=== PATIENT | female | born 1945 | race Caucasian/White ===

== ENCOUNTER 2017-03-01 16:17 | Emergency (ER) | payer MEDICARE, OTHER ==
[~2017-03-01] VITALS: Ht 167.6 cm; Wt 70.0 kg
[2017-03-01 16:25] VITALS: Ht 167.6 cm; Wt 70.0 kg
[2017-03-01] MEDS ORDERED: ASPI-664 PO (16:39)
[2017-03-01] MEDS ORDERED: TRAM-40 PO (16:40)
[2017-03-01] MEDS ORDERED: METO-448 PO (16:42)
[2017-03-01] MEDS ORDERED: DEXL30CA2 PO (16:42)
[2017-03-01] MEDS ORDERED: NAPR-688 PO (16:43)
[2017-03-01] MEDS ORDERED: ASPI325T95 PO (16:46)
[2017-03-01] MEDS ORDERED: ONDANSETRON 4 MG INJ IV STA (16:49)
[2017-03-01] MEDS ORDERED: SOD CHLORIDE 0.9% 1,000 ML IV STA (16:49)
[2017-03-01] MEDS ORDERED: LORAZEPAM 2 MG INJ IV ONE (17:00)
[2017-03-01 17:19] LABS: ADD SCAN DIFF NO
[2017-03-01 17:25] LABS: BASOPHILS % 0.1 % (0.0-2.0); EOSINOPHILS % 0.5 % (0.0-7.0); HEMATOCRIT 36.6 % (37.0-47.0); LYMPHOCYTES # 0.9 10^3/ul (0.8-2.9); LYMPHOCYTES % 10.6 % (15.0-51.0); MEAN CORPUSCULAR HEMOGLOBIN 28.7 pg (29.0-33.0); MEAN CORPUSCULAR HGB CONC 32.8 g/dl (32.0-37.0); MEAN CORPUSCULAR VOLUME 87.6 fl (82.0-101.0); MEAN PLATELET VOLUME 10.2 fl (7.4-10.4); MONOCYTE # 0.4 10^3/ul (0.3-0.9); MONOCYTES % 4.3 % (0.0-11.0); NEUTROPHIL # 6.8 10^3/ul (1.6-7.5); PLATELET COUNT 182 10^3/UL (140-415); RED BLOOD COUNT 4.18 10^6/ul (4.20-5.40); RED CELL DISTRIBUTION WIDTH 13.1 % (11.5-14.5); WHITE BLOOD COUNT 8.1 10^3/ul (4.8-10.8)
[2017-03-01 17:29] LABS: ALBUMIN 4.2 g/dl (3.3-4.9); CHLORIDE 97 mmol/L (97-110); POTASSIUM 3.6 mmol/L (3.5-5.1); SODIUM 136 mmol/L (135-144)
[2017-03-01 17:31] LABS: CREATININE 0.46 mg/dl (0.44-1.00)
[2017-03-01 17:32] LABS: ALANINE AMINOTRANSFERASE 30 IU/L (13-69); ALKALINE PHOSPHATASE 60 IU/L (42-121); ANION GAP 15 (8-16); ASPARTATE AMINO TRANSFERASE 22 IU/L (15-46); BILIRUBIN,INDIRECT 0.2 mg/dl (0-1.1); BILIRUBIN,TOTAL 0.2 mg/dl (0.2-1.3); BLOOD UREA NITROGEN 14 mg/dl (7-20); CALCIUM 8.8 mg/dl (8.4-10.2); CARBON DIOXIDE 28 mmol/L (21-31); GLUCOSE 129 mg/dl (70-220)
[2017-03-01 17:54] LABS: TROPONIN-I < 0.012 ng/ml (0.00-0.12)
[2017-03-01] MEDS ORDERED: ONDA4TAB8 PO (18:14)
[2017-03-01] MEDS ORDERED: FAMO40TA52 PO (18:14)
--- NOTE | 2017-03-01 18:19 | ERA ---
ER Documentation Chief Complaint Date/Time DATE: 03/01/17 TIME: 18:16 Chief Complaint BIB RA FOR EVAL OF N/V X 1 HOUR. HPI 8-year-old woman brought in by daughter for epigastric abdominal discomfort radiating upward associated with multiple episodes of clear nonbloody nonbilious emesis. She states she has had these symptoms before. She states she feels constipated, denies diarrhea, no blood per rectum or melena, no chest pain or shortness of breath, no headache or blurry vision. ROS All systems reviewed and are negative except as per history of present illness. Medications Home Meds Active Scripts Famotidine* (Famotidine*) 40 Mg Tablet, 40 MG PO HS, #30 TAB Prov:INDY MARY MD 03/01/17 Ondansetron Hcl* (Zofran*) 4 Mg Tablet, 4 MG PO Q8H Y for NAUSEA AND/OR VOMITING , #12 TAB Prov:INDY MARY MD 03/01/17 Reported Medications Aspirin/Calcium Carbonate/Mag (Aspirin Buffered) 325 Mg Tablet, 325 MG PO 2 WEEKS for PAIN, TAB PATIENT SAID TAKEN 02/01/17 FOR TWO WEEKS ONLY AFTER THE OPERATION. 03/01/17 Naproxen* (Naproxen*) 500 Mg Tablet, 500 MG PO BID Y for PAIN, TAB 03/01/17 Dexlansoprazole (Dexilant) 30 Mg Cap., 30 MG PO DAILY, #30 CAP 03/01/17 Metoprolol Tartrate* (Lopressor*) 25 Mg Tab, 25 MG PO BID, #60 TAB 03/01/17 Tramadol Hcl* (Ultram*) 50 Mg Tablet, 50 MG PO Q8, TAB 03/01/17 Aspirin* (Aspirin* EC) 81 Mg Tablet., 81 MG PO DAILY, TAB 03/01/17 Allergies Allergies: Coded Allergies: No Known Allergy (Unverified , 03/01/17) PMhx/Soc Recent left total hip arthroplasty, cholecystectomy in 2001, hypertension, coronary artery disease Anesthesia Reaction: No Hx Neurological Disorder: No Hx Respiratory Disorders: No Hx Cardiac Disorders: No Hx Psychiatric Problems: No Hx Miscellaneous Medical Probl: No Hx Alcohol Use: No Hx Substance Use: No Hx Tobacco Use: No Smoking Status: Unknown if ever smoked FmHx Family History: diabetes Physical Exam Vitals Vital Signs Date Time Temp Pulse Resp B/P Pulse Ox O2 Delivery O2 Flow Rate FiO2 03/01/17 19:35 97.6 71 16 133/88 100 Room Air 03/01/17 16:25 97.5 73 18 141/90 99 Physical Exam GENERAL: Well-developed, well-nourished, well-hydrated, nauseous in moderate discomfort, afebrile HEENT: Moist mucous membranes, pink conjunctiva, no cervical spine tenderness or step-off deformities, no goiter, no jaundice or icterus, extraocular movements intact without pain. No submandibular induration, and no pharyngeal erythema NEURO: Alert and oriented 3, cranial nerves II through XII intact bilaterally, pupils equal round reactive to light, no focal deficits or facial asymmetry, sensation intact distally Strength 5/5 in upper and lower extremities bilaterally CARDIAC: Regular rate and rhythm, no murmurs rubs or gallops LUNGS: Clear bilaterally no wheezing crackles or stridor ABDOMEN: Soft nontender, no guarding, no rigidity, no rebound, no psoas sign no obturator sign. Normoactive bowel sounds SKIN: Warm and dry to touch, no abrasions, contusions, or hematomas, no lacerations, no ecchymosis, no target lesions, and without ulcers EXTREMITIES: No clubbing cyanosis or edema, calves are bilaterally symmetrical, no Homans sign, no popliteal cord sign. Distal pulses equal and bilateral PSYCH: Anxious Result Diagram: 03/01/17 1700 03/01/17 1700 Results 24 hrs Laboratory Tests Test 03/01/17 17:00 03/01/17 18:09 White Blood Count 8.110^3/ul Red Blood Count 4.1810^6/ul Hemoglobin 12.0g/dl Hematocrit 36.6% Mean Corpuscular Volume 87.6fl Mean Corpuscular Hemoglobin 28.7pg Mean Corpuscular Hemoglobin Concent 32.8g/dl Red Cell Distribution Width 13.1% Platelet Count 50039^3/UL Mean Platelet Volume 10.2fl Neutrophils % 83.0% Lymphocytes % 10.6% Monocytes % 4.3% Eosinophils % 0.5% Basophils % 0.1% Nucleated Red Blood Cells % 0.0/100WBC Neutrophils # 6.810^3/ul Lymphocytes # 0.910^3/ul Monocytes # 0.410^3/ul Eosinophils # 0.010^3/ul Basophils # 0.010^3/ul Nucleated Red Blood Cells # 0.010^3/ul Sodium Level 136mmol/L Potassium Level 3.6mmol/L Chloride Level 97mmol/L Carbon Dioxide Level 28mmol/L Anion Gap 15 Blood Urea Nitrogen 14mg/dl Creatinine 0.46mg/dl Glucose Level 129mg/dl Calcium Level 8.8mg/dl Total Bilirubin 0.2mg/dl Direct Bilirubin 0.00mg/dl Indirect Bilirubin 0.2mg/dl Aspartate Amino Transf (AST/SGOT) 22IU/L Alanine Aminotransferase (ALT/SGPT) 30IU/L Alkaline Phosphatase 60IU/L Troponin I < 0.012ng/ml Total Protein 7.0g/dl Albumin 4.2g/dl Globulin 2.80g/dl Albumin/Globulin Ratio 1.50 Lipase 58U/L Urine Color LT. YELLOW Urine Clarity CLEAR Urine pH 7.0 Urine Specific [place] 1.015 Urine Ketones NEGATIVE Urine Nitrite NEGATIVE Urine Bilirubin NEGATIVE Urine Urobilinogen 0.2 E.U./dL Urine Leukocyte Esterase NEGATIVE Urine Hemoglobin NEGATIVE Urine Glucose NEGATIVE% Urine Total Protein NEGATIVE Current Medications Medications (Trade) Dose Ordered Sig/Khari Route PRN Reason Start Time Stop Time Status Last Admin Dose Admin Sodium Chloride (NS) 1,000 ml @ 1,000 mls/hr Q1H STAT IV 03/01/17 16:49 03/01/17 17:48 DC 03/01/17 17:04 Ondansetron HCl (Zofran Inj) 4 mg ONCE STAT IV 03/01/17 16:49 03/01/17 16:50 DC 03/01/17 17:04 Lorazepam (Ativan) 0.25 mg ONCE ONCE IV 03/01/17 17:00 03/01/17 17:01 DC 03/01/17 17:04 Procedures/MDM IV line was established patient was placed on manager monitoring rhythm strip revealed a sinus rhythm at about 80 bpm with upright P and T waves. Patient was afebrile. EKG performed, read by me: 79 bpm, normal sinus rhythm, normal axis, no acute ST segment changes, narrow QRS complex, with good R-wave progression in precordial leads. I strongly recommended CT scan of the abdomen and pelvis although patient refused, she wanted no imaging including MRI. X-rays and ultrasounds are completely unreliable in regards to ruling out bowel obstruction. The risks associated with not imaging her were discussed with her and her daughter who was also at the bedside. Her daughter also try persuading her to undergo CT scan of abdomen and pelvis, although patient stayed. she felt much better and still refused. I treated her here with 1 L normal saline intravenously, lorazepam 0.25 mg IV 1 , Zofran 4 mg IV with good response. CBC was unremarkable, electrolytes normal, liver function tests normal, troponin was negative, urine analysis was negative for infection. Differential diagnoses considered, included but not limited to acute coronary syndrome, pulmonary embolism, aortic dissection, abdominal aortic aneurysm, sepsis, stroke, meningitis, encephalitis, pneumonia, appendicitis, cholecystitis , bowel obstruction, pyelonephritis, nephrolithiasis, cystitis, as well as metabolic, hematologic, and electrolyte abnormalities. As well as abscess, cellulitis, fractures, and dislocations. Patient feels much better at this time, and vital signs are normal, symptoms have improved. I did give strict instructions to return to the ED if symptoms continue or worsen, patient will otherwise follow-up with primary care physician. Patient understood instructions and agreed to plan. Departure Diagnosis: Primary Impression: Abdominal pain Qualified Code: R10.84 - Generalized abdominal pain Additional Impression: Vomiting Qualified Code: R11.2 - Non-intractable vomiting with nausea, unspecified vomiting type Condition: Good Patient Instructions: Abdominal Pain, Vomiting (7Y-Adult) INDY MARY MD Mar 01, 2017 18:19
[2017-03-01 19:06] LABS: ADD UMIC NO; URINE BILIRUBIN (Dip) NEGATIVE (NEGATIVE); URINE BLOOD (Dip) NEGATIVE (NEGATIVE); URINE COLOR LT. YELLOW (YELLOW); URINE GLUCOSE (Dip) NEGATIVE (NEGATIVE); URINE KETONES (Dip) NEGATIVE (NEGATIVE); URINE LEUKOCYTE ESTERASE (Dip) NEGATIVE (NEGATIVE); URINE NITRITE (Dip) NEGATIVE (NEGATIVE); URINE TOTAL PROTEIN (Dip) NEGATIVE (NEGATIVE); URINE UROBILINOGEN (Dip) 0.2 E.U./dL (0.1-1.0)
[2017-03-01 19:35] VITALS: BP 133/88; PULSE 71; RESP 16; TEMP 97.6
== END 2017-03-01 20:21 | disposition home or self-care (01) ==
LOC: E/R 16:17
DX: R10.84 Generalized abdominal pain (principal); R11.2 Nausea with vomiting, unspecified; I25.10 Atherosclerotic heart disease of native coronary artery without angina pectoris; I10 Essential (primary) hypertension; Z79.82 Long term (current) use of aspirin
CPT/HCPCS: 80053; 81003; 83690; 84484; 85025; 93005; J2060; J2405; J7030; 36415; 96374; 96375